=== PATIENT | male | born 1950 | race Caucasian/White ===

== ENCOUNTER → 2016-06-16 | Outpatient (CLI) | payer OTHER ==
[2016-06-16 09:28] LABS: Basophils # (A) 0.1 k/uL (0-0.2); Basophils % (A) 1 %; CH 32.8; CHCM 36.3; Eosinophils # (A) 0.3 k/uL (0-0.7); Eosinophils % (A) 4 %; HCT 42.8 % (39.0-53.0); HDW 3.55; HGB 14.9 gm/dL (13.0-17.5); Hyperchromasia Slight; Luc # (Auto) 0.22; Luc % (Auto) 3; Lymphocytes # (A) 2.1 k/uL (1.0-4.8); Lymphocytes % (A) 33 %; MCH 31.6 pg (25.0-35.0); MCHC 34.7 g/dL (31.0-37.0); Mean Platelet Volume 9.7; Monocytes # (A) 0.4 k/uL (0-1.0); Monocytes % (A) 6 %; Neutrophils # (A) 3.5 k/uL (1.3-7.7); Neutrophils % (A) 53 %; Poikilocytosis Slight; RDW 13.9 % (11.5-15.5); WBC 6.6 k/uL (3.8-10.6)
[2016-06-16 10:13] LABS: Appearance,Urine Clear (Clear); Bilirubin,Urine Negative (Negative); Glucose,Urine (UA) Negative (Negative); Ketones,Urine Negative (Negative); Leukocyte Esterase,Urine Negative (Negative); Nitrite,Urine Negative (Negative); Protein,Urine Negative (Negative); Specific Gravity,Urine 1.021 (1.001-1.035); UA Billing (MACRO vs. MICRO) CHEM; Urobilinogen,Urine <2.0 mg/dL (<2.0)
[2016-06-16 11:03] LABS: ALT 59 U/L (21-72); AST 33 U/L (17-59); Alkaline Phosphatase 58 U/L (38-126); Anion Gap 12 mmol/L; Blood Urea Nitrogen 28 mg/dL (9-20); Calcium 9.4 mg/dL (8.4-10.2); Carbon Dioxide 25 mmol/L (22-30); Chloride 108 mmol/L (98-107); Cholesterol 264 mg/dL (<200); Glucose 113 mg/dL (74-99); HDL Cholesterol 48 mg/dL (40-60); Non-African American GFR(MDRD) >60 (>60 ml/min/1.73 sqM); Sodium 145 mmol/L (137-145); Total Bilirubin 0.7 mg/dL (0.2-1.3); Total Protein 6.9 g/dL (6.3-8.2); Triglycerides 179 mg/dL (<150)
[2016-06-16 11:36] LABS: Potassium 3.5 mmol/L (3.5-5.1)
[2016-06-16 12:38] LABS: Hemoglobin A1C 5.3 % (4.2-6.1)
== END | disposition home or self-care (01) ==
LOC: LABWHC1 08:41
PROVIDERS: ATTEND Family Medicine
DX: Z00.00 Encounter for general adult medical examination without abnormal findings (principal); I25.10 Atherosclerotic heart disease of native coronary artery without angina pectoris
CPT/HCPCS: 84439; 80061; 80053; 83036; 84443; 85025; 81003; 36415; G0103

== ENCOUNTER → 2016-09-29 | Outpatient (CLI) | payer OTHER ==
[2016-09-29 08:29] LABS: Basophils % (A) 1 %; CH 32.7; CHCM 35.6; Eosinophils # (A) 0.2 k/uL (0-0.7); Eosinophils % (A) 4 %; HCT 42.6 % (39.0-53.0); HDW 3.61; Luc # (Auto) 0.23; Luc % (Auto) 4; Lymphocytes # (A) 1.9 k/uL (1.0-4.8); Lymphocytes % (A) 33 %; MCH 32.5 pg (25.0-35.0); MCHC 35.1 g/dL (31.0-37.0); MCV 92.4 fL (80.0-100.0); Mean Platelet Volume 8.6; Monocytes # (A) 0.3 k/uL (0-1.0); Monocytes % (A) 5 %; Neutrophils # (A) 3.1 k/uL (1.3-7.7); Neutrophils % (A) 54 %; Poikilocytosis Slight; RBC 4.61 m/uL (4.30-5.90); RDW 14.1 % (11.5-15.5); WBC 5.7 k/uL (3.8-10.6)
[2016-09-29 08:34] LABS: ALT 50 U/L (21-72); AST 27 U/L (17-59); Alkaline Phosphatase 60 U/L (38-126); Anion Gap 9 mmol/L; Blood Urea Nitrogen 24 mg/dL (9-20); Calcium 9.1 mg/dL (8.4-10.2); Carbon Dioxide 26 mmol/L (22-30); Chloride 110 mmol/L (98-107); Cholesterol 243 mg/dL (<200); Glucose 111 mg/dL (74-99); HDL Cholesterol 49 mg/dL (40-60); Non-African American GFR(MDRD) >60 (>60 ml/min/1.73 sqM); Potassium 4.3 mmol/L (3.5-5.1); Sodium 145 mmol/L (137-145); Total Bilirubin 0.7 mg/dL (0.2-1.3); Triglycerides 162 mg/dL (<150)
[2016-10-02 07:57] LABS: Hemoglobin A1C 5.4 % (4.2-6.1)
== END | disposition home or self-care (01) ==
LOC: LABWHC1 07:30
PROVIDERS: ATTEND Family Medicine
DX: E78.5 Hyperlipidemia, unspecified (principal)
CPT/HCPCS: 36415; 80053; 80061; 83036; 85025

== ENCOUNTER 2017-07-12 07:45 | Day surgery (SDC) | payer MEDICARE ==
[2017-07-10 15:15] VITALS: BMI 31.3
[~2017-07-12 07:45] MED LIST: LACTATED RINGERS 1,000 ML IV SCH
[2017-07-12 08:45] VITALS: RESP 16; TEMP 97.6
[2017-07-12] MEDS ORDERED: LIDOCAINE 1% 20 ML VIAL (10MG/ML) FOR IV START INTRADERMA ONE (09:06)
[2017-07-12] MEDS ORDERED: PROPOFOL 10 MG/ML 20 ML VIAL IV ONE (09:59)
--- NOTE | 2017-07-12 10:18 | P.PCN ---
Date of Procedure: 07/12/17 Procedure(s) Performed: BRIEF HISTORY: Patient is a 66-year-old pleasant white male, scheduled for an elective colonoscopy as a part of evaluation of prior history of colon polyps. Last coloscopy was 5 years ago. PROCEDURE PERFORMED: Colonoscopy. PREOPERATIVE DIAGNOSIS: History Of colon polyps. IV sedation per Anesthesia. PROCEDURE: After informed consent was obtained, the patient, was brought into the endoscopy unit. IV sedation was administered by Anesthesia under continuous monitoring. Digital rectal examination was normal. Initially the Olympus CF- 160 flexible video colonoscope was then inserted in the rectum, gradually advanced into the cecum without any difficulty. Careful examination was performed as the scope was gradually being withdrawn. Ileocecal valve and the appendiceal orifice were visualized and appeared normal. Prep was excellent. Mucosa of the cecum, ascending colon, transverse colon, descending colon, sigmoid colon, and rectum appeared normal. Sigmoid diverticulosis seen. Retroflexion was performed in the rectum and no lesions were seen. The patient tolerated the procedure well. IMPRESSION: Normal-appearing colon from rectum to cecum with no evidence of colorectal neoplasia. Scattered sigmoid diverticulosis. RECOMMENDATIONS: Findings of this examination were discussed with the patient as well as his family. He was advised to have a repeat screening colonoscopy in 5 years because of the prior history of colon polyps..
[2017-07-12 10:45] VITALS: BP 123/72; PULSE 46
== END 2017-07-12 11:15 | disposition home or self-care (01) ==
LOC: ORWHC2ENDO 07:45
PROVIDERS: ATTEND Internal Medicine Gastroenterology
DX: Z12.11 Encounter for screening for malignant neoplasm of colon (principal); K57.30 Diverticulosis of large intestine without perforation or abscess without bleeding; Z87.19 Personal history of other diseases of the digestive system; I25.10 Atherosclerotic heart disease of native coronary artery without angina pectoris; I10 Essential (primary) hypertension; E78.5 Hyperlipidemia, unspecified; N40.0 Benign prostatic hyperplasia without lower urinary tract symptoms; Z95.5 Presence of coronary angioplasty implant and graft; Z79.899 Other long term (current) drug therapy; Z79.82 Long term (current) use of aspirin; Z88.0 Allergy status to penicillin
CPT/HCPCS: J2704; G0121

== ENCOUNTER → 2019-11-16 | Outpatient (CLI) | payer MEDICARE ==
--- NOTE | 2019-11-16 08:10 | XR ---
EXAMINATION TYPE: XR foot complete bilateral DATE OF EXAM: 11/16/2019 CLINICAL HISTORY: pain TECHNIQUE: Frontal, lateral and oblique images of the bilateral feet are obtained. COMPARISON: None. FINDINGS: There is no acute fracture/dislocation evident. Plantar calcifications are noted bilateral ly right greater than left. Dorsal calcaneal spur formation noted as well. Degenerative narrowing tar veronica metatarsal joints as well as the first metatarsal phalangeal joints bilaterally. IMPRESSION: There is no acute fracture or dislocation. ICD 10 NO FRACTURE, INITIAL EVALUATION
== END | disposition home or self-care (01) ==
LOC: RADXRMAIN 07:29
PROVIDERS: ATTEND Family Medicine
DX: M72.2 Plantar fascial fibromatosis (principal)

== ENCOUNTER → 2023-04-26 | Outpatient (CLI) | payer MEDICARE ==
--- NOTE | 2023-04-27 12:46 | CA ---
Transthoracic Echo Report Name: Dwight Walker Age: 72 Gender: M : 1950 Exam Date: 04/26/2023 13:27 Exam Location: [facility] Ht (in): 66 Wt (lb): 182 Ordering Physician: Josep Carcamo MD Attending/Referring Phys: Helena Claudio [facility] Sizing Machine Operator Casandra Moreno [facility] Procedure CPT: Indications: I51.7 Cardiomegaly Cardiac Hx: Technical Quality: Fair Contrast 1: Total Dose (mL): Contrast 2: Total Dose (mL): MEASUREMENTS (Male / Female) Normal Values 2D ECHO LV Diastolic Diameter PLAX 5.2 cm 4.2 - 5.9 / 3.9 - 5.3 cm LV Systolic Diameter PLAX 3.2 cm IVS Diastolic Thickness 1.0 cm 0.6 - 1.0 / 0.6 - 0.9 cm LVPW Diastolic Thickness 1.0 cm 0.6 - 1.0 / 0.6 - 0.9 cm LV Relative Wall Thickness 0.4 LVOT Diameter 2.1 cm Ascending Aorta Diameter 3.7 cm M-MODE Aortic Root Diameter MM 2.9 cm LA Systolic Diameter MM 3.5 cm LA Ao Ratio MM 1.2 AV Cusp Separation MM 2.0 cm DOPPLER AV Peak Velocity 148.6 cm/s AV Peak Gradient 8.8 mmHg AV Mean Velocity 96.5 cm/s AV Mean Gradient 4.4 mmHg AV Velocity Time Integral 30.3 cm AI Peak Velocity 353.0 cm/s AI Peak Gradient 49.8 mmHg AI Pressure Half Time 551.7 ms LVOT Peak Velocity 106.5 cm/s LVOT Peak Gradient 4.5 mmHg LVOT Velocity Time Integral 20.3 cm LVOT Stroke Volume 67.3 cm??? LVOT Stroke Volume Index 35.0 ml/m??? LVOT Cardiac Index 2305.6 cm???/min???m??? AV Area Cont Eq vti 2.2 cm??? AV Area Cont Eq pk 2.4 cm??? Mitral E Point Velocity 81.0 cm/s Mitral A Point Velocity 74.0 cm/s Mitral E to A Ratio 1.1 MV Deceleration Time 189.4 ms LV E' Lateral Velocity 9.5 cm/s Mitral E to LV E' Lateral Ratio 8.5 LV E' Septal Velocity 9.8 cm/s Mitral E to LV E' Septal Ratio 8.2 TR Peak Velocity 261.9 cm/s TR Peak Gradient 27.4 mmHg Right Atrial Pressure 8.0 mmHg Pulmonary Artery Systolic Pressu 35.4 mmHg Right Ventricular Systolic Press 35.4 mmHg FINDINGS Left Ventricle Left ventricular wall thickness at upper limits of normal. Left ventricular cavity size normal. Normal left ventricular systolic function with no obvious regional wall motion abnormalities. Left ventricular ejection fraction is estimated at 55-60%. Right Ventricle Mild right ventricular dilatation. Mild pulmonary hypertension. Right Atrium Mild right atrial dilatation. Left Atrium Moderate left atrial dilatation. Mitral Valve Mitral valve thickened. Mild mitral regurgitation. Aortic Valve Mildly calcified trileaflet aortic valve. [id number] aortic regurgitation. Tricuspid Valve Structurally normal tricuspid valve. Trace tricuspid regurgitation. Pulmonic Valve Structurally normal pulmonic valve. Trace pulmonic regurgitation. Pericardium Minimal pericardial effusion (normal variant). Echo free space anterior to the right ventricle likely represents a fat pad. Aorta Normal size aortic root and proximal ascending aorta. CONCLUSIONS Normal LV size and systolic function Previewed by: Dr. Dayron Harrison MD (Electronically Signed) Final Date: 27 April 2023 12:46
== END | disposition home or self-care (01) ==
LOC: RADECHMAIN 13:20
PROVIDERS: ATTEND Family Medicine
DX: I51.7 Cardiomegaly (principal)
CPT/HCPCS: 93306

== ENCOUNTER → 2023-09-04 | Outpatient (CLI) | payer MEDICARE ==
[2023-09-04 15:03] LABS: LDL Cholesterol,Calculated 106.9 mg/dL (0.0-131.0)
== END | disposition home or self-care (01) ==
LOC: LABWHC1 08:02
PROVIDERS: ATTEND Student in an Organized Health Care Education/Training Program
DX: E78.5 Hyperlipidemia, unspecified (principal)
CPT/HCPCS: 36415; 80061; 83036

== ENCOUNTER → 2024-04-28 | Outpatient (CLI) | payer MEDICARE | END | disposition home or self-care (01) | LOC: LABWHC1 13:33 | PROVIDERS: ATTEND Urology | DX: R97.20 Elevated prostate specific antigen [PSA] (principal) | CPT/HCPCS: 36415; 84153 ==

== ENCOUNTER → 2024-10-21 | Outpatient (CLI) | payer MEDICARE | END | disposition home or self-care (01) | LOC: LABWHC1 13:29 | PROVIDERS: ATTEND Urology | DX: R97.20 Elevated prostate specific antigen [PSA] (principal) | CPT/HCPCS: 36415; 84153 ==